=== PATIENT | female | born 1945 | race Caucasian/White ===

== ENCOUNTER 2019-12-06 10:04 | Emergency (ER) | payer OTHER, SELFPAY ==
[2019-12-06] VITALS (17 sets, daily range): BP systolic 105–130; BP diastolic 50–80; PULSE 72–114; RESP 18–27; TEMP 37.4; O2SAT 93–100
--- NOTE | 2019-12-06 10:20 | ED.GENADULT ---
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 this morning. She texted her daughter and asked for help in coming to the emergency department. She denies nausea, vomiting, fevers, diaphoresis or any type of pain. She does appear acutely dyspneic with no accessory muscle use and no wheezing or stridor. She is able to speak in full sentences. History is obtainedw with the help of lip reading, writing and her daughter. She states she has been in her usual state of health without acute complaints until 9:00 a.m. this morning. Review of symptoms she apparently had a right ankle injury a number of years ago and has a chronic ankle deformity in chronic right lower extremity edema, intermittent diarrhea and constipation. Apparently had a long period of constipation and then 2 days ago a large amount of diarrhea. No fevers, cough, chills, palpitations, orthopnea Related Data Home Medications Medication Instructions Recorded Confirmed ACETAMINOPHEN (TYLENOL EXTRA 500 mg PO PRN #0 05/05/12 STRENGTH) Previous Rx's Medication Instructions Recorded NYSTATIN 0 TP SEE INSTRUCTIONS #1 tube 11/21/15 estradiol [Estrace] 0 VAGINAL SEE INSTRUCTIONS #1 tube 11/21/15 fluoxetine 20 mg PO Q DAY #90 tab 11/24/16 allopurinol 300 mg PO QDAY #90 tab 12/29/16 lisinopril-hydrochlorothiazide 1 tab PO QDAY #90 tab 12/29/16 naproxen [Naprosyn] 500 mg PO BIDCC #180 tab 12/29/16 oxybutynin chloride 5 mg PO TID #270 tab 12/29/16 hydrocodone-acetaminophen [[place]] 1 tab PO TIDP PRN #60 tab 01/06/17 doxycycline hyclate 100 mg PO BID #20 cap 12/06/19 Allergies Allergy/AdvReac Type Severity Reaction Status Date / Time benzoin [BENZOIN] Allergy Mild skin Unverified 07/08/17 13:02 reaction Review of Systems Review of Systems Narrative: She does note a moderate amount of exertional dyspnea that is been present for years, worse with heat but unchanged over the last days. Remainder of review of systems including constitutional, ENT, cardiovascular, respiratory, GI, , musculoskeletal, skin, neurologic and psychiatric systems reviewed and are unremarkable except as noted in HPI. Patient History Medical History Depression (07/05/14) Essential hypertension (09/04/16) Hyperlipidemia (Acute) Surgical History Status post appendectomy Status post cholecystectomy Status post hernia repair Family History Father Cancer Social History Smoking Status: Never smoker Exam Narrative Exam Narrative: General: Healthy appearing, deaf, mild respiratory distress but no accessory muscle use and no diaphoresis HEENT: Moist mucous membranes, normal sclera with reactive pupils, minor bruise medial aspect her left eyebrow without abrasion Neck: No JVD, supple Respiratory: Lungs are clear to auscultation, no wheezing no rales no rhonchi. Full and symmetrical air movement Cardiac: Regular rate and rhythm, 4/6 systolic murmur, no bruits Abdomen: Soft nontender good bowel tones, no flank pain Skin: Warm and dry, no rashes Neurologic: Grossly neurologically intact with no obvious asymmetries or abnormalities Extremities: Right ankle brace and right lower extremity edema (both chronic) Psych: Cooperative, appropriate insight and affect Initial Vital Signs Initial Vital Signs: Vital Signs Temperature 99.4 F 12/06/19 10:43 Pulse Rate 90 12/06/19 10:43 Respiratory Rate 18 12/06/19 10:43 Blood Pressure 130/61 12/06/19 10:43 Pulse Oximetry 100 12/06/19 10:43 Course Orders Ordered: ED Orders 12/06/19 10:10 EKG-12 Lead Routine 12/06/19 10:26 XR chest 1V Stat 12/06/19 10:30 Complete Blood Count AUTO DIFF Stat Comprehensive Metabolic Panel Stat D Dimer Stat Lipase Stat Magnesium Stat NT-proBNP (BNP-Adult 18+) Stat Procalcitonin Stat Troponin I Stat 12/06/19 11:41 COVID19 -ED/INPAT/OR/L&D Stat 12/06/19 12:23 EKG-12 Lead Stat 12/06/19 12:40 Troponin I Stat 12/06/19 13:18 Urine Culture Stat Urine Microscopic Stat 12/06/19 13:48 CT angio chest PE protocol Stat Nitroglycerin (Nitrostat) 0.4 mg SL [id number] PRN PRN Reason: Chest Pain Last Admin: 12/06/19 10:56 Dose: 0.4 mg Documented by: LYDIA Discontinued Medications Aspirin (Aspirin Chew) 324 mg PO NOW ONE Stop: 12/06/19 10:27 Last Admin: 12/06/19 10:57 Dose: 324 mg Documented by: LYDIA Sodium Chloride (Normal Saline 0.9%) 1,000 mls @ 1,000 mls/hr IV BOLUS ONE Stop: 12/06/19 11:25 Last Infusion: 12/06/19 12:17 Dose: 0 mls/hr Documented by: Admin: 12/06/19 10:58 Dose: 1,000 mls/hr Documented by: LYDIA Vital Signs Vital signs: Vital Signs - 8 hr 12/06/19 10:43 12/06/19 10:56 12/06/19 11:30 Temperature 99.4 F Pulse Rate 90 80 72 Respiratory Rate 18 20 Blood Pressure 130/61 128/58 L 114/67 Pulse Oximetry 100 97 12/06/19 12:04 12/06/19 12:49 12/06/19 13:00 Temperature Pulse Rate 74 88 89 Respiratory Rate 23 Blood Pressure 110/58 L Pulse Oximetry 97 97 97 12/06/19 13:01 12/06/19 13:15 12/06/19 13:30 Temperature Pulse Rate 87 93 H Respiratory Rate 23 25 H 25 H Blood Pressure 122/56 L 129/61 Pulse Oximetry 98 96 97 12/06/19 13:31 12/06/19 13:45 12/06/19 14:04 Temperature Pulse Rate 92 H 93 H 103 H Respiratory Rate 24 22 Blood Pressure 119/57 L 110/50 L Pulse Oximetry 97 97 97 12/06/19 14:31 12/06/19 14:32 12/06/19 14:46 Temperature Pulse Rate 114 H 110 H 100 H Respiratory Rate Blood Pressure 115/80 108/54 L Pulse Oximetry 93 99 Medical Decision Making Medical Records Medical records reviewed: Yes I reviewed the patient's medical records. Lab Data Lab results reviewed: Yes I reviewed the patient's lab results. Result diagrams: 12/06/19 10:30 12/06/19 10:30 Labs: Lab Results 12/06/19 12/06/19 12/06/19 Range/Units 10:30 10:30 10:30 WBC 11.8 H (4.5-11.0) X10^3/uL RBC 4.45 (4.0-5.2) X10^6/uL Hgb 12.8 (12.0-16.0) g/dL Hct 37.8 (36-46) % MCV 84.9 (80-100) fL MCH 28.7 (26-34) PG MCHC 33.8 (30-36) % RDW 14.6 (11.6-14.8) % Plt Count 267 (150-400) X10^3/uL Neut % (Auto) 68.4 (50-75) % Lymph % (Auto) 25.5 (25-40) % [place] % (Auto) 4.9 (3-14) % Eos % (Auto) 0.5 L (2-4) % Baso % (Auto) 0.7 (0-2) % Neut # (Auto) 8100 H (7843-5146) /uL Lymph # (Auto) 3000 (5819-6439) /uL [place] # (Auto) 600 (0-900) /uL Eos # (Auto) 100 (0-450) /uL Baso # (Auto) 100 (0-100) /uL D-Dimer 752 H (<230) ng/mL Sodium 137 (137-145) mmol/L Potassium 3.5 (3.4-5.1) mmol/L Chloride 100 (98-107) mmol/L Carbon Dioxide 26 (22-32) mmol/L BUN 24 H (7-17) mg/dL Creatinine 1.02 (0.52-1.04) mg/dL Estimated GFR 53.3 L (>60) mL/min BUN/Creatinine Ratio 23.5 H (6-22) Glucose 129 H (80-110) mg/dL Calcium 10.3 H (8.4-10.2) mg/dL Magnesium 1.8 (1.6-2.3) mg/dL Total Bilirubin 0.8 (0.2-1.3) mg/dL AST 33 (14-36) IU/L ALT 20 (<35) IU/L Alkaline Phosphatase 106 (38-126) U/L Troponin I 0.014 (0.01-0.034) ng/mL NT-Pro-B Natriuret Pep 150 H (<125) pg/mL Total Protein 8.2 (6.3-8.2) g/dL Albumin 4.5 (3.5-5.0) g/dL Globulin 3.7 (1.7-4.1) g/dL Albumin/Globulin Ratio 1.2 (1.0-2.8) Lipase 159 (23-300) U/L Procalcitonin (<0.5) ng/mL Urine RBC (0-5/HPF) Urine WBC (0-5/HPF) Ur Squamous Epith Cells (0-5/HPF) Ur Transition Epith Cell (0-5/HPF) Ur Renal Epithelial Cell (0-1/HPF) Urine Bacteria (None) Ur Culture Indicated? Micro UA Comment COVID-19 PCR (Negative) 12/06/19 12/06/19 12/06/19 Range/Units 10:30 11:41 12:40 WBC (4.5-11.0) X10^3/uL RBC (4.0-5.2) X10^6/uL Hgb (12.0-16.0) g/dL Hct (36-46) % MCV (80-100) fL MCH (26-34) PG MCHC (30-36) % RDW (11.6-14.8) % Plt Count (150-400) X10^3/uL Neut % (Auto) (50-75) % Lymph % (Auto) (25-40) % [place] % (Auto) (3-14) % Eos % (Auto) (2-4) % Baso % (Auto) (0-2) % Neut # (Auto) (1461-9304) /uL Lymph # (Auto) (2767-9063) /uL [place] # (Auto) (0-900) /uL Eos # (Auto) (0-450) /uL Baso # (Auto) (0-100) /uL D-Dimer (<230) ng/mL Sodium (137-145) mmol/L Potassium (3.4-5.1) mmol/L Chloride (98-107) mmol/L Carbon Dioxide (22-32) mmol/L BUN (7-17) mg/dL Creatinine (0.52-1.04) mg/dL Estimated GFR (>60) mL/min BUN/Creatinine Ratio (6-22) Glucose (80-110) mg/dL Calcium (8.4-10.2) mg/dL Magnesium (1.6-2.3) mg/dL Total Bilirubin (0.2-1.3) mg/dL AST (14-36) IU/L ALT (<35) IU/L Alkaline Phosphatase (38-126) U/L Troponin I < 0.012 (0.01-0.034) ng/mL NT-Pro-B Natriuret Pep (<125) pg/mL Total Protein (6.3-8.2) g/dL Albumin (3.5-5.0) g/dL Globulin (1.7-4.1) g/dL Albumin/Globulin Ratio (1.0-2.8) Lipase (23-300) U/L Procalcitonin 1.22 H (<0.5) ng/mL Urine RBC (0-5/HPF) Urine WBC (0-5/HPF) Ur Squamous Epith Cells (0-5/HPF) Ur Transition Epith Cell (0-5/HPF) Ur Renal Epithelial Cell (0-1/HPF) Urine Bacteria (None) Ur Culture Indicated? Micro UA Comment COVID-19 PCR Negative (Negative) 12/06/19 Range/Units 13:18 WBC (4.5-11.0) X10^3/uL RBC (4.0-5.2) X10^6/uL Hgb (12.0-16.0) g/dL Hct (36-46) % MCV (80-100) fL MCH (26-34) PG MCHC (30-36) % RDW (11.6-14.8) % Plt Count (150-400) X10^3/uL Neut % (Auto) (50-75) % Lymph % (Auto) (25-40) % [place] % (Auto) (3-14) % Eos % (Auto) (2-4) % Baso % (Auto) (0-2) % Neut # (Auto) (0927-0370) /uL Lymph # (Auto) (6297-6669) /uL [place] # (Auto) (0-900) /uL Eos # (Auto) (0-450) /uL Baso # (Auto) (0-100) /uL D-Dimer (<230) ng/mL Sodium (137-145) mmol/L Potassium (3.4-5.1) mmol/L Chloride (98-107) mmol/L Carbon Dioxide (22-32) mmol/L BUN (7-17) mg/dL Creatinine (0.52-1.04) mg/dL Estimated GFR (>60) mL/min BUN/Creatinine Ratio (6-22) Glucose (80-110) mg/dL Calcium (8.4-10.2) mg/dL Magnesium (1.6-2.3) mg/dL Total Bilirubin (0.2-1.3) mg/dL AST (14-36) IU/L ALT (<35) IU/L Alkaline Phosphatase (38-126) U/L Troponin I (0.01-0.034) ng/mL NT-Pro-B Natriuret Pep (<125) pg/mL Total Protein (6.3-8.2) g/dL Albumin (3.5-5.0) g/dL Globulin (1.7-4.1) g/dL Albumin/Globulin Ratio (1.0-2.8) Lipase (23-300) U/L Procalcitonin (<0.5) ng/mL Urine RBC 0-1/hpf (0-5/HPF) Urine WBC 1-5/hpf (0-5/HPF) Ur Squamous Epith Cells 0-1 /hpf (0-5/HPF) Ur Transition Epith Cell 0-1/hpf (0-5/HPF) Ur Renal Epithelial Cell 0-1/hpf (0-1/HPF) Urine Bacteria Many (>30) H (None) Ur Culture Indicated? Specimen cultured Micro UA Comment Marcell esterase + COVID-19 PCR (Negative) Urine Dip Bedside Urine Glucose Negative Bedside Urine Bilirubin - Negative Bedside Urine Ketone - Negative Urine Specific [place] 1.010 Bedside Urine Occult Blood - Negative Bedside Urine pH 6.0 Bedside Urine Protein - Negative Bedside Urine Urobilinogen - Negative Bedside Urine Nitrite - Negative Bedside Urine Leukocytes ++ 125 Esterase Point of care testing: Urine Dip Bedside Urine Glucose Negative Bedside Urine Bilirubin - Negative Bedside Urine Ketone - Negative Urine Specific [place] 1.010 Bedside Urine Occult Blood - Negative Bedside Urine pH 6.0 Bedside Urine Protein - Negative Bedside Urine Urobilinogen - Negative Bedside Urine Nitrite - Negative Bedside Urine Leukocytes ++ [address] scan - chest: Radiologist's Impression: FINDINGS: Image quality: There is suboptimal central pulmonary artery opacification. Pulmonary arteries: Pulmonary arteries are normal in size, and demonstrate no intraluminal filling defects to suggest central pulmonary embolism. Lungs and pleura: Bilateral ground-glass and interstitial infiltrates. There are discoid atelectasis in right middle lobe and lingula.. No pleural effusions or pneumothorax. Central and peripheral airways are patent. Mediastinum: Heart size is normal, without pericardial effusion. Sided prominent AP window lymph node measures 1 cm. No enlarged hilar lymph nodes. Thoracic aorta is normal in caliber and enhancement. Esophagus is normal in caliber. Tiny hiatal hernia. Bones and chest wall: No suspicious bony lesions. Ribs and thoracic spine appear intact throughout. Thyroid gland is normal. No axillary or supraclavicular adenopathy. Abdomen: Visualized upper abdominal solid organs appear normal in the early arterial phase of enhancement. IMPRESSION: 1. Suboptimal opacification of central pulmonary arteries. No definitive pulmonary embolus identified. 2. Bilateral ground-glass and interstitial infiltrates consistent with pulmonary edema, pneumonitis or pneumonia. 3. Right middle lobe and lingula atelectasis. Dictated by: Zulma Cole M.D. on 12/06/2019 at 13:15 ECG Data Attestation: I personally reviewed and interpreted this ECG as follows: Interpretation: Sinus rhythm at a rate of 88 Normal intervals, normal axis Lateral ST depression, no ST elevation, no comparisons #2 Sinus rhythm at a rate of 87 Longer p.r. interval with first-degree AV block, axis has shifted from [address] depression has resolved No ST elevation MDM Narrative Medical decision making narrative: 74-year-old woman with acute onset of dyspnea without chest pain. Lateral ST depressions on her EKG and significant improvement in dyspnea after aspirin and nitroglycerin. Initial troponin is unremarkable. Repeat will be done at 2 hours (1230) initial heart score of 5 which puts her at high risk for major adverse coronary event and hospitalization will be recommended. The 2nd troponin and continued clinical course of the next 2 hours will help determine which hospital will be the most appropriate location Second troponin is unremarkable. EKG has resolved ST lateral depressions. D-dimer is positive at 752. Will send her for a PE study. Have talked with Dr. Flores, admitting hospitalist. Will evaluate her after CT scan is been done with anticipation of hospital admission, continued chest pain workup and nuclear medicine study. Pt is informed of findings, results concerns and need for hospital admission. Questions are answered. 2:40 CT scan confirms absence of pulmonary embolism but Bilateral ground-glass and interstitial infiltrates consistent with pulmonary edema, pneumonitis or pneumonia. Rapid Covid test is negative, BNP is not significantly elevated to suggest heart failure and clinical exam was not consistent acute heart failure. She is completely asymptomatic and no longer short of breath at this time. Onset was acute and self limited for the dyspnea which is not suggestive of the developing infection. At this time, I still suspect that the acute onset of dyspnea that completely resolved with a single nitroglycerin is more cardiac related the pulmonary related. Will not begin any antibiotics or Lasix at this time. Will review further with the hospitalist. Patient has been seen and evaluated by Dr. May in the emergency department. His assessment is more chronic pulmonary issue rather than any acute cardiac issue. She also has asymptomatic bacteriuria. In shared decision making he and the patient have decided that discharge home is safe with a course of doxycycline. Patient states she does have follow-up with primary care however that is back in [place]. Will facilitate discharge and encouraged her to return if she has any additional complaints or concerns. Discharge Plan Departure Patient Disposition: Home Clinical Impression: Shortness of Breath, Asymptomatic bacteriuria Instructions: DI for Atypical Pneumonia Activity Restrictions/Additional Instructions: Thank you for coming in today You became abruptly short of breath this morning. Your evaluation in the emergency room does not suggest an acute heart attack or blood clot in your lungs however your shortness of breath did go completely away after a single dose of nitroglycerin. You did have a chest CT that suggested the possibility of a developing atypical pneumonia (your Covid study was negative today). We also noted bacteria in your urine but you are not complaining of any bladder infection type symptoms. After talking with our hospitalist physician, Dr May, we feel that is safe for you to go home today. We are going to suggest a short course of antibiotics given the findings on your CT scan. The antibiotics will also treat the bacteria noted in your urine. If you have recurrent symptoms particularly abrupt shortness of breath, sweatiness or any type of chest pain it would be very appropriate to return to the emergency department. Please follow-up with your primary care physician within 3-4 days Prescriptions: New doxycycline hyclate 100 mg capsule 100 mg PO BID Qty: 20 RF: 0 No Action ACETAMINOPHEN (TYLENOL EXTRA STRENGTH) 500 mg PO PRN Qty: 0 RF: 0 NYSTATIN 0 TP SEE INSTRUCTIONS Qty: 1 RF: 4 estradiol [Estrace] 0.01 % cream 0 Vaginal SEE INSTRUCTIONS Qty: 1 RF: 2 fluoxetine 20 MG tablet 20 mg PO Q DAY Qty: 90 RF: 3 oxybutynin chloride 5 MG tablet 5 mg PO TID Qty: 270 RF: 3 lisinopril-hydrochlorothiazide 20 MG/25 MG tablet 1 tab PO QDAY Qty: 90 RF: 3 allopurinol 300 MG tablet 300 mg PO QDAY Qty: 90 RF: 0 naproxen [Naprosyn] 500 MG tablet 500 mg PO BIDCC Qty: 180 RF: 0 hydrocodone-acetaminophen [[place]] 5 MG/325 MG tablet 1 tab PO TIDP PRNQty: 60 RF: 0
--- NOTE | 2019-12-06 10:26 | DI.RAD.S_ITS ---
PROCEDURE: XR CHEST 1V INDICATIONS: acute dypsnea TECHNIQUE: One view of the chest was acquired. COMPARISON: None. FINDINGS: Surgical changes and devices: None. Lungs and pleura: Lungs are clear. No pleural effusions or pneumothorax. Mediastinum: Mediastinal contours appear normal. Heart size is normal. Bones and chest wall: No suspicious bony lesions. Overlying soft tissues appear unremarkable. IMPRESSION: No acute cardiopulmonary pathology. Dictated by: Ramirez Adorno M.D. on 12/06/2019 at 11:10 Approved by: Ramirez Adorno M.D. on 12/06/2019 at 11:18
[2019-12-06 10:41] LABS: Add Manual Diff / Slide Review NO; Basophils Absolute Auto 100 /uL (0-100); Basophils Percent Auto 0.7 % (0-2); Eosinophils Absolute Auto 100 /uL (0-450); Eosinophils Percent Auto 0.5 % (2-4); Hematocrit 37.8 % (36-46); Hemoglobin 12.8 g/dL (12.0-16.0); Lymphocytes Absolute Auto 3000 /uL (1100-4500); Lymphocytes Percent Auto 25.5 % (25-40); Mean Corpuscular HGB Conc 33.8 % (30-36); Mean Corpuscular Hemoglobin 28.7 PG (26-34); Mean Corpuscular Volume 84.9 fL (80-100); Monocytes Absolute Auto 600 /uL (0-900); Monocytes Percent Auto 4.9 % (3-14); Neutrophils Absolute Auto 8100 /uL (1500-7000); Neutrophils Percent Auto 68.4 % (50-75); Platelet Count 267 X10^3/uL (150-400); Red Blood Cell Count 4.45 X10^6/uL (4.0-5.2); Red Cell Distribution Width 14.6 % (11.6-14.8); White Blood Cell Count 11.8 X10^3/uL (4.5-11.0)
--- NOTE | 2019-12-06 10:47 | PC.NURSE ---
pt is nervous and feeling short of breath. explained vital signs were good, pt calmed a bit.
[2019-12-06 10:54] LABS: Alanine Aminotransferase 20 IU/L (<35); Albumin 4.5 g/dL (3.5-5.0); Albumin Globulin Ratio 1.2 (1.0-2.8); Alkaline Phosphatase 106 U/L (38-126); Aspartate Aminotransferase 33 IU/L (14-36); BUN Creatinine Ratio 23.5 (6-22); Bilirubin Total 0.8 mg/dL (0.2-1.3); Blood Urea Nitrogen 24 mg/dL (7-17); Calcium 10.3 mg/dL (8.4-10.2); Carbon Dioxide 26 mmol/L (22-32); Chloride 100 mmol/L (98-107); Estimated Glomerular Filt Rate 53.3 mL/min (>60); Globulin 3.7 g/dL (1.7-4.1); Glucose 129 mg/dL (80-110); HEMOLYSIS < 15 (0-50); Lipase 159 U/L (23-300); Magnesium 1.8 mg/dL (1.6-2.3); Potassium 3.5 mmol/L (3.4-5.1); Sodium 137 mmol/L (137-145); Total Protein 8.2 g/dL (6.3-8.2)
[2019-12-06] MEDS: NITROGLYCERIN 0.4 MG SL TAB SL (10:56)
[2019-12-06] MEDS: ASPIRIN 81 MG CHEW TAB 324 MG PO (10:57)
[2019-12-06] MEDS: SODIUM CHLORIDE 0.9% 1,000 ML 1000 ML IV (10:58)
[2019-12-06 11:06] LABS: NT-proBNP (BNP-Adult 18+) 150 pg/mL (<125); Troponin I 0.014 ng/mL (0.01-0.034)
[2019-12-06 11:15] LABS: Procalcitonin 1.22 ng/mL (<0.5)
[2019-12-06 11:26] LABS: D Dimer 752 ng/mL (<230)
[2019-12-06 12:15] LABS: COVID19 -Nasal RAPID Negative (Negative)
--- NOTE | 2019-12-06 12:18 | PC.NURSE ---
provided patient with Ice water. Ok per provider. Updated patient plan for EKG and blood work [id number]
[2019-12-06 13:19] LABS: Troponin I < 0.012 ng/mL (0.01-0.034)
[2019-12-06 13:47] LABS: Bacteria Urine Many (>30); RBC Urine 0-1/HPF (0-5/HPF); Renal Epithelial Cells Urine 0-1/HPF (0-1/HPF); Squamous Epithelial Cell Urine 0-1 /HPF (0-5/HPF); Transitional Epi Cells Urine 0-1/HPF (0-5/HPF); WBC Urine 1-5/HPF (0-5/HPF)
[2019-12-06 13:48] LABS: Culture Indicated Urine Specimen Cultured; Urine Comments LEU ESTERASE +
--- NOTE | 2019-12-06 13:48 | DI.CT.S_ITS ---
PROCEDURE: CT ANGIO CHEST PE PROTOCOL INDICATIONS: elevated d-dimer TECHNIQUE: After the administration of intravenous contrast, 2 mm thick sections acquired from the pulmonary apices to the posterior costophrenic angles. 3-dimensional maximum intensity projection (MIP) coronal and sagittal reformats were then acquired through the thorax. For radiation dose reduction, the following was used: automated exposure control, adjustment of mA and/or kV according to patient size. COMPARISON: [facility], , ECHOCARDIOGRAM COMPLETE, 09/26/2016, 13:57. [facility], CR, XR CHEST 1V, 12/06/2019, 10:40. FINDINGS: Image quality: There is suboptimal central pulmonary artery opacification. Pulmonary arteries: Pulmonary arteries are normal in size, and demonstrate no intraluminal filling defects to suggest central pulmonary embolism. Lungs and pleura: Bilateral ground-glass and interstitial infiltrates. There are discoid atelectasis in right middle lobe and lingula.. No pleural effusions or pneumothorax. Central and peripheral airways are patent. Mediastinum: Heart size is normal, without pericardial effusion. Sided prominent AP window lymph node measures 1 cm. No enlarged hilar lymph nodes. Thoracic aorta is normal in caliber and enhancement. Esophagus is normal in caliber. Tiny hiatal hernia. Bones and chest wall: No suspicious bony lesions. Ribs and thoracic spine appear intact throughout. Thyroid gland is normal. No axillary or supraclavicular adenopathy. Abdomen: Visualized upper abdominal solid organs appear normal in the early arterial phase of enhancement. IMPRESSION: 1. Suboptimal opacification of central pulmonary arteries. No definitive pulmonary embolus identified. 2. Bilateral ground-glass and interstitial infiltrates consistent with pulmonary edema, pneumonitis or pneumonia. 3. Right middle lobe and lingula atelectasis. Dictated by: Zulma Cole M.D. on 12/06/2019 at 13:15 Approved by: Zulma Cole M.D. on 12/06/2019 at 13:25
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
== END 2019-12-06 15:28 | disposition home or self-care (01) ==
PROVIDERS: Emergency Provider Emergency Medicine; Family Provider Family Medicine
DX: R06.02 Shortness of breath (principal); R82.71 Bacteriuria
CPT/HCPCS: 36415; 71045; 71275; 80053; 81003; 81015; 83690; 83735; 83880; 84145; 84484; 85025; 85379; 87077; 87086; 87186; 87635; 93005; 96360; 99284; Q9967

== ENCOUNTER 2019-12-15 14:26 | Emergency (ER) | payer OTHER, SELFPAY ==
[2019-12-15] VITALS (10 sets, daily range): BP systolic 102–149; BP diastolic 56–83; PULSE 76–96; RESP 16–20; TEMP 36.9; O2SAT 92–100; BMI 32.7
[2019-12-15 15:45] LABS: Add Manual Diff / Slide Review NO; Basophils Absolute Auto 0 /uL (0-100); Basophils Percent Auto 0.5 % (0-2); Eosinophils Absolute Auto 200 /uL (0-450); Hematocrit 39.2 % (36-46); Hemoglobin 13.2 g/dL (12.0-16.0); Lymphocytes Absolute Auto 2500 /uL (1100-4500); Mean Corpuscular HGB Conc 33.8 % (30-36); Mean Corpuscular Hemoglobin 28.8 PG (26-34); Mean Corpuscular Volume 85.2 fL (80-100); Monocytes Absolute Auto 800 /uL (0-900); Monocytes Percent Auto 7.7 % (3-14); Neutrophils Absolute Auto 6600 /uL (1500-7000); Neutrophils Percent Auto 64.8 % (50-75); Platelet Count 274 X10^3/uL (150-400); Red Cell Distribution Width 14.8 % (11.6-14.8); White Blood Cell Count 10.1 X10^3/uL (4.5-11.0)
[2019-12-15 15:52] LABS: INR 1.1 (0.9-1.3); Prothrombin Time 12.6 SECONDS (10.1-12.7)
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
[2019-12-15 15:55] LABS: PTT Partial Thromboplastin Tim 30 SECONDS (26.4-36.2)
[2019-12-15 15:59] LABS: Alanine Aminotransferase 19 IU/L (<35); Albumin 4.1 g/dL (3.5-5.0); Albumin Globulin Ratio 1.1 (1.0-2.8); Alkaline Phosphatase 108 U/L (38-126); Aspartate Aminotransferase 29 IU/L (14-36); BUN Creatinine Ratio 27.8 (6-22); Bilirubin Total 0.9 mg/dL (0.2-1.3); Blood Urea Nitrogen 25 mg/dL (7-17); Calcium 9.9 mg/dL (8.4-10.2); Carbon Dioxide 25 mmol/L (22-32); Chloride 102 mmol/L (98-107); Estimated Glomerular Filt Rate > 60.0 mL/min (>60); Globulin 3.6 g/dL (1.7-4.1); Glucose 106 mg/dL (80-110); HEMOLYSIS < 15 (0-50); Lipase 156 U/L (23-300); Potassium 3.4 mmol/L (3.4-5.1); Sodium 139 mmol/L (137-145); Total Protein 7.7 g/dL (6.3-8.2)
--- NOTE | 2019-12-15 16:09 | DI.CT.S_ITS ---
PROCEDURE: CT ABDOMEN PELVIS W CON INDICATIONS: ab pain TECHNIQUE: After the administration of intravenous contrast, 5 mm thick sections acquired from the diaphragm to the symphysis. 5 mm coronal and sagittal reformats were acquired. For radiation dose reduction, the following was used: automated exposure control, adjustment of mA and/or kV according to patient size. COMPARISON: None. FINDINGS: Image quality: Excellent. ABDOMEN: Lung bases: Linear scarring or atelectasis is seen in the anterior lung bases. Solid organs: Liver is normal in size and enhancement. The gallbladder is mildly distended. No gallstones or signs of acute cholecystitis. There is mild prominence of the common bile duct that measures up to 10 mm in diameter. No focal stricture is seen. No mass is seen in the pancreatic head. No choledocholith is seen. Pancreas enhances normally. Spleen is normal in size and enhancement. No adrenal nodules. Kidneys demonstrate normal size and enhancement, without hydronephrosis. Peritoneum and bowel: Bowel loops demonstrate normal wall thickness and caliber. No free fluid or air. Nodes and vessels: No retroperitoneal or mesenteric adenopathy by size criteria. Aorta and inferior vena cava are normal in size. Atherosclerotic calcifications are seen in the aorta. Miscellaneous: There is diastasis of the rectus abdominus muscles with protrusion of peritoneal fat and large bowel. A small ventral hernia is seen in the upper abdomen that contains a portion of the anterior wall of the transverse colon. No signs of bowel obstruction. PELVIS: Genitourinary: Bladder wall thickness is normal. The uterus appears normal. There is no adnexal mass. Miscellaneous: There is a small fat containing right inguinal hernia. Bones: No suspicious bony lesions. No vertebral body compression fractures. Multilevel degenerative changes are seen in the spine with dextroconvex curvature of the lumbar spine. IMPRESSION: 1. Mild gallbladder distension is seen with mild prominence of the common bile duct, which is nonspecific and may be related to timing of the most recent meal. Recommend correlation with clinical and laboratory findings. No gallbladder or biliary ductal calculus is seen. 2. An upper abdominal ventral hernia contains fat and portion of the anterior wall of the transverse colon. No inflammatory changes or signs of bowel obstruction are seen. Dictated by: Frank Guevara M.D. on 12/15/2019 at 16:52 Approved by: Frank Guevara M.D. on 12/15/2019 at 17:02
--- NOTE | 2019-12-15 16:09 | DI.RAD.S_ITS ---
PROCEDURE: XR CHEST 1V INDICATIONS: Short of breath TECHNIQUE: One view of the chest was acquired. COMPARISON: [facility], CT, CT ANGIO CHEST PE PROTOCOL, 12/06/2019, 13:52. [facility], CR, XR CHEST 1V, 12/06/2019, 10:40. FINDINGS: Surgical changes and devices: Upper abdominal postoperative clips are seen. Lungs and pleura: An incomplete inspiratory result is noted, causing a crowded appearance to the lung markings. No focal infiltrates are seen. No pneumothorax or significant pleural effusions are seen. Mediastinum: The cardiac contours are mildly enlarged. The aorta demonstrates calcification and tortuosity. Bones and chest wall: No suspicious bony lesions. Age-appropriate bony degenerative changes are seen. Mild levoconvex scoliotic curvature is noted. Overlying soft tissues appear unremarkable. IMPRESSION: Limited portable chest examination, without a significant cardiopulmonary abnormality identified. Postoperative and degenerative changes are seen. Dictated by: Luan Gonzalez M.D. on 12/15/2019 at 16:02 Approved by: Luan Gonzalez M.D. on 12/15/2019 at 16:03
[2019-12-15] MEDS: ALBUTEROL HFA PREPACK 1 BOX MISC (16:17)
[2019-12-15 16:47] LABS: Creatine Kinase 38 U/L (30-135)
[2019-12-15 17:00] LABS: NT-proBNP (BNP-Adult 18+) 87 pg/mL (<125); Troponin I < 0.012 ng/mL (0.01-0.034)
== END 2019-12-15 18:14 | disposition home or self-care (01) ==
PROVIDERS: Emergency Provider Emergency Medicine; Family Provider Family Medicine
DX: J45.20 Mild intermittent asthma, uncomplicated (principal); R10.9 Unspecified abdominal pain
CPT/HCPCS: 36415; 71045; 74177; 80053; 81003; 82550; 83690; 83880; 84484; 85025; 85610; 85730; 93005; 93010; 99283; 99284; Q9967